=== PATIENT | male | born 1955 | race African-American/Black ===

== ENCOUNTER 2019-05-09 04:31 | Emergency (ER) | payer MEDICAID ==
[~2019-05-09] VITALS: Ht 170.2 cm; Wt 78.0 kg
[2019-05-09] MEDS ORDERED: ONDANSETRON 4MG ODT PO STA (08:39)
[2019-05-09] MEDS ORDERED: VISCOUS LIDOCAINE 2% 15 ML UDC PO STA (08:39)
[2019-05-09] MEDS ORDERED: MAGNESIUM/ALUMINUM HYDROXIDE/SIMETHICONE 30ML UDC PO STA (08:39)
[2019-05-09] MEDS ORDERED: DICYCLOMINE 10 MG/5 ML ORAL SYR PO STA (08:39)
[2019-05-09 09:10] LABS: BASOPHILS % 1.2 % (0.0-2.0); EOSINOPHILS % 1.3 % (0.0-5.0); HEMATOCRIT. 32.4 % (42.0-52.0); HEMOGLOBIN. 10.8 g/dL (14.0-18.0); LYMPHOCYTES % 17.9 % (20.0-50.0); MEAN CORPUSCULAR HEMOGLOBIN 29.8 pg (28.0-32.0); MEAN CORPUSCULAR VOLUME 89.8 fL (80.0-94.0); MEAN PLATELET VOLUME 6.7 fl (7.4-10.4); MONOCYTES % 9.2 % (2.0-8.0); NEUTROPHILS % 70.4 % (40.0-76.0); PLATELET 656 x1000/uL (130-400); RED BLOOD CELL COUNT 3.61 mill/uL (4.7-6.1); RED CELL DISTRIBUTION WIDTH 13.4 % (11.6-14.6)
[2019-05-09 09:19] LABS: CHLORIDE 103 mEq/L (98-107)
[2019-05-09 11:06] VITALS: BP 118/72
[2019-05-09] MEDS ORDERED: ONDANSETRON 4MG ODT ONE (11:25)
[2019-05-09] MEDS ORDERED: ONDANSETRON HCL 4MG TABLET PO ONE (11:30)
== END 2019-05-09 11:26 | disposition home or self-care (01) ==
LOC: ER 04:31
DX: K21.9 Gastro-esophageal reflux disease without esophagitis (principal)
CPT/HCPCS: 36415; 71045; 73630; 80053; 83690; 85025; 99284; C1893; Q0162